=== PATIENT | female | born 1990 | race African-American/Black ===

== ENCOUNTER 2017-03-02 19:40 | Inpatient (IN) | payer OTHER ==
[2017-03-02 20:31] VITALS: BMI 31.7
[2017-03-02 20:34] LABS: BASOPHIL 0.5 % (0-2.0); EOSINOPHIL 1.4 % (0-4.5); MCH 26.4 pg (25.7-33.7); MCHC 31.9 g/dl (32.0-36.0); MEAN CELL VOLUME 82.8 fl (80-96); MEAN PLT VOLUME 9.2 fl (7.5-11.1); NEUTROPHILS 74.4 % (42.8-82.8); PLATELET COUNT 300 K/MM3 (134-434); RDW 16.7 % (11.6-15.6)
[2017-03-02 20:47] LABS: INR 0.97 (0.82-1.09); PROTHROMBIN TIME (PATIENT) 10.7 SEC (9.98-11.88)
[2017-03-02 20:49] LABS: ACTIVATED PTT 26.2 SECONDS (26.9-34.4)
[2017-03-02 20:59] LABS: ANION GAP 13 (8-16); CALCIUM 8.5 mg/dL (8.5-10.1); CO2 21 mmol/L (21-32); CREATININE 0.6 mg/dL (0.55-1.02); GLUCOSE,RANDOM 69 mg/dL (74-106)
[2017-03-02] MEDS ORDERED: ELECTROLYTE-148 SOLN 500 ML IV ONE (21:00)
[2017-03-02] MEDS ORDERED: FENTANYL/BUPIVACAINE/NS/PF - PCEA - 50 ML DISP.SYRIN EP SCH (21:30)
[2017-03-02] MEDS ORDERED: ELECTROLYTE-148 SOLN 1,000 ML IV SCH (22:00)
[2017-03-02] MEDS ORDERED: WITCH HAZEL 50% (TUCKS) 40 PAD/JAR PAD TP PRN (22:41)
[2017-03-02] MEDS ORDERED: BISACODYL 10 MG SUPP.RECT RC PRN (22:41)
[2017-03-02] MEDS ORDERED: METHYLERGONOVINE MALEATE 0.2 MG/1 ML AMP IM PRN (22:41)
[2017-03-02] MEDS ORDERED: BENZOCAINE 28 GM HEMORRHOIDAL OINTMENT TP PRN (22:41)
[2017-03-02] MEDS ORDERED: BENZOCAINE 20% 57 GM BOTTLE TP PRN (22:41)
--- NOTE | 2017-03-02 22:41 | HP ---
Past Medical History - Admission Chief Complaint: Labor pain History of Present Illness: 26 yo @ 39 weeks gestation, EDC 03/09/17, presents to L&D c/o labor pain. Upon admission she was 6 cm dilated. History Source: Patient Limitations to Obtaining History: No Limitations - Past Medical History Pulmonary: Yes: Asthma ...: 2 ...Para: 1 ...Term: 1 ...: 0 ...Spon : 0 ...Induced : 0 ...Multiple Gestation: 0 ...LMP: 07/05/16 ...EDC by Dates: 04/11/16 ...EDC by Sono: 03/09/16 - Past Surgical History Past Surgical History: Yes: None Hx Myomectomy: No Hx Transabdominal Cerclage: No - Smoking History Smoking history: Never smoked Have you smoked in the past 12 months: No - Alcohol/Substance Use Hx Alcohol Use: No - Social History Usual Living Arrangement: Yes: With Significant Other History of Recent Travel: No Home Medications - Allergies Allergies/Adverse Reactions: Allergies Allergy/AdvReac Type Severity Reaction Status Date / Time No Known Allergies Allergy Verified 03/02/17 20:40 - Home Medications Home Medications: Ambulatory Orders Ferrous Sulfate [Feosol] 325 mg PO DAILY 03/02/17 Vit Calc,Iron,Folic [ Vitamins] 1 each PO DAILY 03/02/17 Family Disease History - Family Disease History Family History: Unremarkable Review of Systems - Review of Systems Constitutional: reports: No Symptoms Eyes: reports: No Symptoms HENT: reports: No Symptoms Neck: reports: No Symptoms Cardiovascular: reports: No Symptoms Respiratory: reports: No Symptoms Gastrointestinal: reports: No Symptoms Genitourinary: reports: Pain Breasts: reports: No Symptoms Reported Musculoskeletal: reports: No Symptoms Integumentary: reports: No Symptoms Neurological: reports: No Symptoms Endocrine: reports: No Symptoms Hematology/Lymphatic: reports: No Symptoms Psychiatric: reports: No Symptoms Pain Intensity: 7 Physical Exam - Maternity Vital Signs: Vital Signs Temperature 98.3 F 03/02/17 19:55 Pulse Rate 69 03/02/17 22:00 Respiratory Rate 20 03/02/17 22:00 Blood Pressure 117/79 03/02/17 22:00 O2 Sat by Pulse Oximetry (%) 100 03/02/17 22:00 Constitutional: Yes: Well Nourished HENT: Yes: Atraumatic Neck: Yes: Supple Cardiovascular: Yes: Regular Rate and Rhythm Lungs: Clear to auscultation - Abdominal Exam/OB Number of Fetuses: Single Presentation: Vertex Contractions: Yes Regularity: Irregular Intensity: Mod/Strong - Vaginal Exam/OB Vaginal Bleediing: No Speculum Exam: No Dilatation (cm): 6 Effacement (%): 80 Amniotic Membrane Status: Intact - Labs Lab Results: CBC, BMP 03/02/17 20:10 03/02/17 20:10 Problem List - Problems (1) Pain during labor Code(s): O99.89 - OTH DISEASES AND CONDITIONS COMPL PREG/CHLDBRTH R52 - PAIN, UNSPECIFIED Assessment/Plan IUP @ 39 weeks Active labor Admit to L&D Analgesia as needed Anticipate
[2017-03-02] MEDS ORDERED: D5W-LR W/ 20 UNITS OXYTOCIN 1,000 ML IV SCH (22:45)
--- NOTE | 2017-03-02 23:12 | PN ---
Delivery - Delivery Vaginal Delivery: Spontaneous Type of Anesthesia: Epidural Episiotomy/Laceration: 1st degree (Bilateral labial laceration) EBL (cc): 300 Delivery, Single - Feeding Plan Initial Plan: Exclusive throughout hospitalization Remarks - Remarks Remarks: Normal spontaneous vaginal delivery of a live infant boy. Nose / Oropharynx suctioned @ perineum. Cord clamped and cut. Placenta expelled spontaneously intact. Labial laceration ( Right ) repaired with 2.0 chromic.
--- NOTE | 2017-03-02 23:16 | DS ---
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: Vital Signs Temperature 98.3 F 03/02/17 19:55 Pulse Rate 69 03/02/17 22:00 Respiratory Rate 20 03/02/17 22:00 Blood Pressure 117/79 03/02/17 22:00 O2 Sat by Pulse Oximetry (%) 100 03/02/17 22:00 Constitutional: Yes: Well Nourished Eyes: Yes: Conjunctiva Clear HENT: Yes: Atraumatic Neck: Yes: Supple, Trachea Midline Cardiovascular: Yes: Regular Rate and Rhythm Respiratory: Yes: Regular, CTA Bilaterally Gastrointestinal: Yes: Normal Bowel Sounds Vaginal Exam: Yes: Normal Cervix: Yes: Normal Uterus: Yes: Firm ....Post : Yes: Uterus firm, Moderate lochia serosa Breast(s): Yes: WNL Neurological: Yes: Alert, Oriented ...Motor Strength: WNL Psychiatric: Yes: Alert, Oriented Labs: CBC, BMP 03/02/17 20:10 03/02/17 20:10 Delivery - Delivery Vaginal Delivery: Spontaneous Type of Anesthesia: Epidural Episiotomy/Laceration: 1st degree (Bilateral labial laceration) EBL (cc): 300 Delivery, Single - 5 Minutes Total Score: 9 1 Minute Total Score: 9 - Feeding Plan Initial Plan: Exclusive throughout hospitalization Discharge Summary Reason For Visit: LABOR ADMIT Current Active Problems Pain during labor (Acute) Status post normal vaginal delivery (Acute) Procedures: Principal: Normal spontaneous vaginal delivery Hospital Course: Routine care Condition: Good - Instructions Diet, Activity, Other Instructions: Regular diet No douching, no sexual intercourse x 6 weeks F/U in clinic in 6 weeks Referrals: [facility] (Jan[facility] Wren) [Outside] Tanisha Graham MD [Staff Physician] - Disposition: HOME - Home Medications Comprehensive Discharge Medication List: Ambulatory Orders Ferrous Sulfate [Feosol] 325 mg PO DAILY 03/02/17 Vit Calc,Iron,Folic [ Vitamins] 1 each PO DAILY 03/02/17
[2017-03-03] MEDS: ACETAMINOPHEN 325 MG TABLET (FP) PO PRN ×2 (07:39→23:25)
[2017-03-03] MEDS: FERROUS SO4 325 MG TABLET (FP) PO SCH ×3 (07:39→17:09)
--- NOTE | 2017-03-03 08:25 | PN ---
Post Progress Note - Subjective Subjective: 26 yo para 2 status post vaginal delivery, seen and evaluated. Doing well Post Day: 1 Type of Delivery: Vital Signs: Vital Signs Temperature 98.1 F 03/03/17 06:00 Pulse Rate 74 03/03/17 06:00 Respiratory Rate 18 03/03/17 06:00 Blood Pressure 126/80 03/03/17 06:00 O2 Sat by Pulse Oximetry (%) 99 03/03/17 00:00 Breast Exam: Yes: Soft Uterus: Yes: Fundus Firm Abdomen/GI: Yes: Abdomen soft, Tolerating PO Lochia: Yes: Rubra Lochia, amount: Moderate Extremities: Yes: Calves non-tender Perineum: Yes: Intact Activity: Ambulating - Labs Labs: CBC WBC 13.0 K/mm3 (4.0-10.0) H 03/02/17 20:10 RBC 3.35 M/mm3 (3.60-5.2) L 03/02/17 20:10 Hgb 8.9 GM/dL (10.7-15.3) L D 03/02/17 20:10 Hct 27.8 % (32.4-45.2) L 03/02/17 20:10 MCV 82.8 fl (80-96) 03/02/17 20:10 MCHC 31.9 g/dl (32.0-36.0) L 03/02/17 20:10 RDW 16.7 % (11.6-15.6) H D 03/02/17 20:10 Plt Count 300 K/MM3 (134-434) D 03/02/17 20:10 MPV 9.2 fl (7.5-11.1) 03/02/17 20:10 Neutrophils % 74.4 % (42.8-82.8) 03/02/17 20:10 Lymphocytes % 15.4 % (8-40) D 03/02/17 20:10 Monocytes % 8.3 % (3.8-10.2) 03/02/17 20:10 Eosinophils % 1.4 % (0-4.5) 03/02/17 20:10 Basophils % 0.5 % (0-2.0) 03/02/17 20:10 Problem List - Problems (1) Pain during labor Code(s): O99.89 - OTH DISEASES AND CONDITIONS COMPL PREG/CHLDBRTH R52 - PAIN, UNSPECIFIED Assessment/Plan Status post vaginal delivery Stable Continue routine care
[2017-03-03 08:36] LABS: BASOPHIL 0.3 % (0-2.0); EOSINOPHIL 0.7 % (0-4.5); MCH 26.6 pg (25.7-33.7); MCHC 32.1 g/dl (32.0-36.0); MEAN CELL VOLUME 83.1 fl (80-96); NEUTROPHILS 82.3 % (42.8-82.8); PLATELET COUNT 242 K/MM3 (134-434); RDW 16.6 % (11.6-15.6); WHITE BLOOD COUNT 16.9 K/mm3 (4.0-10.0)
[2017-03-03] MEDS: PRENATAL VITAMINS W/ FOLIC ACID TABLET (FP) PO SCH (09:29)
[2017-03-03] MEDS ORDERED: SENNOSIDES/DOCUSATE COMBO (SENNA PLUS) TABLET (UD) PO PRN (22:00)
[2017-03-03] MEDS: IBUPROFEN 600 MG TABLET (FP) PO PRN (23:24)
[2017-03-04] MEDS: PRENATAL VITAMINS W/ FOLIC ACID TABLET (FP) PO SCH (09:06)
[2017-03-04] MEDS: FERROUS SO4 325 MG TABLET (FP) PO SCH ×2 (09:06→12:33)
[2017-03-04 10:34] VITALS: BP 105/75; PULSE 71; TEMP 97.8
[2017-03-04] MEDS: ACETAMINOPHEN 325 MG TABLET (FP) PO PRN (12:35)
[2017-03-04] MEDS: IBUPROFEN 600 MG TABLET (FP) PO PRN (12:37)
== END 2017-03-04 16:00 | disposition home or self-care (01) | DRG 560 ==
LOC: JLDR 19:40 → J3W 03-03 01:10
PROVIDERS: ADMIT Obstetrics & Gynecology; ATTEND Obstetrics & Gynecology
PROC: 10E0XZZ Delivery of Products of Conception, External Approach (ICD-10-PCS; principal; 2017-03-02)
PROC: 0HQ9XZZ Repair Perineum Skin, External Approach (ICD-10-PCS; 2017-03-02)
DX: O70.0 First degree perineal laceration during delivery (principal); Z3A.39 39 weeks gestation of pregnancy; Z37.0 Single live birth
CPT/HCPCS: 36415; 59409; 80048; 85025; 85610; 85730; 86593; 86850; 86900; 86901